=== PATIENT | male | born 1975 | race Two or more races ===

== ENCOUNTER 2019-11-10 11:00 | Emergency (ER) | payer SELFPAY ==
[~2019-11-10] VITALS: Ht 172.7 cm; Wt 63.0 kg
[2019-11-10] MEDS ORDERED: BACITRACIN ZINC OINT UDPKT TOP ONE (11:30)
[2019-11-10] MEDS ORDERED: LIDOCAINE HCL/PF 1% 10 MG/ML 5ML VIAL IJ ONE (11:30)
[2019-11-10] MEDS ORDERED: IBUPROFEN 600MG TABLET PO ONE (11:30)
[2019-11-10] MEDS ORDERED: TETANUS, DIPHTHERIA, PERTUSSIS VAC/PF 0.5ML (>7YR OLD) IM ONE (12:00)
[2019-11-10 12:24] VITALS: BP 133/78
== END 2019-11-10 13:04 | disposition home or self-care (01) ==
LOC: ER 11:00
DX: S01.511A Laceration without foreign body of lip, initial encounter (principal); Y04.0XXA Assault by unarmed brawl or fight, initial encounter; Y93.89 Activity, other specified; Y92.89 Other specified places as the place of occurrence of the external cause; Y99.8 Other external cause status
CPT/HCPCS: 12011; 90471; 90715; 99283; J3490